=== PATIENT | male | born 1985 | race Two or more races ===

== ENCOUNTER 2018-05-12 13:24 | Emergency (ER) | payer OTHER ==
--- NOTE | 2018-05-12 13:32 | PDOC ---
History of Present Illness - General Stated Complaint: CHEST PAIN Time Seen by Provider: 05/12/18 13:31 - History of Present Illness Initial Comments: 05/12/18 13:51 The patient is a 32 year old male with a history of HTN who presents for evaluation of chest pain and shortness of breath. The patient reports that he has been having intermittent sharp chest pain over the past few days lasting a few seconds. He states that today he was walking back from court when he experienced a sensation that he couldn't catch his breath with a pounding sensation in his chest and tingling in his fingertips prompting his presentation to the ED for further evaluation. He states that he has been under a number of social stressors lately and noted that his symptoms have worsened in conjunction with his worsening social stressors. He otherwise denies fevers, chills, nausea, vomiting, abdominal pain, or changes with urination or bowel movements. Past History - Past Medical History Allergies/Adverse Reactions: Allergies Allergy/AdvReac Type Severity Reaction Status Date / Time No Known Allergies Allergy Verified 05/12/18 13:47 Home Medications: Ambulatory Orders Hydrochlorothiazide 12.5 mg PO DAILY #20 tablet 05/12/18 Lisinopril [Prinivil] 20 mg PO DAILY #20 tablet 05/12/18 Review of Systems - Review of Systems Comments:: 05/12/18 13:54 Constitutional: No fevers, chills, fatigue, malaise HEENT: No Rhinorrhea, nasal congestion, visual changes Cardiovascular: Chest pain. No syncope, palpitations, lightheadedness Respiratory: SOB. No Cough, Hemoptysis, Gastrointestinal: No Abdominal pain, Nausea, Vomiting, Constipation, Diarrhea, Melena Genitourinary: No Dysuria, Frequency, Urgency, Hesitancy, Hematuria, Flank pain Musculoskeletal: No Myalgia, arthralgia Skin: No rashes, itching, bruising, pallor Neurologic: Tingling. No Headache, Dizziness, Numbness, Weakness, Psychiatric: No Hallucinations. No SI or HI *Physical Exam - Physical Exam Comments: 05/12/18 13:55 General Appearance: Nourished. No Apparent Distress HEENT: No Pharyngeal Erythema, Tonsillar Exudate, Tonsillar Erythema Neck: No Cervical Lymphadenopathy Respiratory/Chest: Lungs Clear, Normal Breath Sounds. No Crackles, Rales, Rhonchi, Wheezing Cardiovascular: Regular Rhythm, Regular Rate. No Murmur, Gallops, Rubs Gastrointestinal/Abdominal: Normal Bowel Sounds, Soft. No Guarding, Rebound, Tenderness Musculoskeletal: No CVA Tenderness Extremity: Normal Capillary Refill Integumentary: Normal Color, Dry, Warm Neurologic: Fully Oriented, Alert, Normal Mood/Affect, Normal Response, Heart Score/ECG Review #1 ECG reviewed & interpreted by me at: 15:00 General ECG Interpretation: Sinus Rhythm, Normal Rate, Normal Intervals, No acute ischemic changes ED Treatment Course - LABORATORY CBC & Chemistry Diagram: 05/12/18 14:35 05/12/18 14:35 Medical Decision Making - Medical Decision Making 05/12/18 13:56 The patient is a 32 year old male with a history of HTN who presents for evaluation of chest pain and shortness of breath. Differential includes but is not limited to: Arrhythmia, ACS, Anxiety, Musculoskeletal, Infectious, Metabolic Derangement. Given the patient's history and physical exam, it is likely his symptoms are related to an anxiety attack. However, we will obtain a cbc, cmp, troponin, chest plain film, ekg to evaluate further. We will continue to monitor and reassess while here in the ED. 05/12/18 18:36 CBC, cmp, troponin are unremarkable. Chest plain film demonstrates a large heart. Bedside echocardiogram is unremarkable. We discussed the case with cardiology who agrees with outpatient management. The patient's blood pressure has been persistently elevated after treatment with lisinopril, hydrochlorothiazid, lebatolol. He has not been compliant with medications and likely is persistently hypertensive at baseline. We discussed the risks of hypertension and persistent hypertension with the patient and the patient voiced that he wished to leave and understands the risks of his persistent hypertension. The patient is currently asymptomatic and we will discharge the patient with cardiology follow up. We discussed the results, plan and return precautions with the patient who voiced understanding and is agreeable with the plan. *DC/Admit/Observation/Transfer Diagnosis at time of Disposition: Chest pain Qualifiers: Chest pain type: unspecified Qualified Code(s): R07.9 - Chest pain, unspecified - Discharge Dispostion Disposition: HOME Condition at time of disposition: Stable - Prescriptions Prescriptions: Hydrochlorothiazide 12.5 mg PO DAILY #20 tablet Lisinopril [Prinivil] 20 mg PO DAILY #20 tablet - Referrals Referrals: Eron Matthews MD [Staff Physician] - Ligia Contreras MD [Staff Physician] - Magy Carrera MD [Staff Physician] - - Patient Instructions Printed Discharge Instructions: DI for Atypical Chest Pain Additional Instructions: Please return to the ER if you experience concerning or worsening symptoms including worsening difficulty breathing, weakness, or chest pain. Your lab results were normal here in the ER. Please call to schedule a follow up appointment with our technical support director within 2-3 days to discuss your ER visit and further management of your symptoms. - Post Discharge Activity Forms/Work/School Notes: Back to Work
[2018-05-12] MEDS ORDERED: SODIUM CHLORIDE 1,000 ML IV STA (13:48)
[2018-05-12 13:57] VITALS: TEMP 98.2; BMI 39.1
[2018-05-12 14:55] LABS: BASO % 0.6 % (0-2.0); EOS % 1.1 % (0-4.5); HEMOGLOBIN 19.5 GM/dL (11.7-16.9); LYMPH % 24.4 % (8-40); MCH 28.5 pg (25.7-33.7); MCHC 33.6 g/dl (32.0-35.9); MEAN CELL VOLUME 84.9 fl (80-96); MEAN PLT VOLUME 7.3 fl (7.5-11.1); MONO % 7.1 % (3.8-10.2); NEUT % 66.8 % (42.8-82.8); PLATELET COUNT 254 K/MM3 (134-434); RBC 6.84 M/mm3 (4.00-5.60); WHITE BLOOD COUNT 7.8 K/mm3 (4.0-10.0)
[2018-05-12 15:37] LABS: ALBUMIN 3.9 g/dl (3.4-5.0); ALK PHOS 51 U/L (45-117); ANION GAP 10 MMOL/L (8-16); BILIRUBIN,TOTAL 0.6 mg/dL (0.2-1); BLOOD UREA NITROGEN 10 mg/dL (7-18); CALCIUM 8.8 mg/dL (8.5-10.1); CHLORIDE 101 mmol/L (98-107); CO2 25 mmol/L (21-32); GLUCOSE,RANDOM 77 mg/dL (74-106); POTASSIUM 4.5 mmol/L (3.5-5.1); SGOT/AST 20 U/L (15-37); SGPT/ALT 26 U/L (13-61); SODIUM 136 mmol/L (136-145); TOT PROT 7.6 g/dl (6.4-8.2)
[2018-05-12] MEDS ORDERED: LISINOPRIL 20 MG TABLET (FP) PO ONE (15:52)
[2018-05-12] MEDS ORDERED: HYDROCHLOROTHIAZIDE 25 MG TABLET (FP) PO ONE (15:52)
--- NOTE | 2018-05-12 16:00 | PDOC ---
Attending Attestation - HPI HPI: 05/12/18 16:01 Patient is a 32 year old male with a significant past medical history of HTN, who presents to the ED with complaints of shortness of breath that began this morning. Patient reports leaving the courtroom when he began to experiencing shortness of breath, as well as associated symptoms of sensation of heart pounding, tingling in hands, chest pain, and sensation of woozy feeling, prompting him to come into the ED for further evaluation. He reports being non compliant with HTN medication for the past month. Patient reports experiencing insomnia as well as being told by girlfriend of continuous snoring at night, stating it appears as if hes gasping for air. Denies Denies nausea, vomiting. Denies contact with sick individuals, out of state travelling. Denies trauma to affected area. Denies fevers, chills. Denies any other symptoms. Allergies: None Social history: No smoking. No alcohol. No illicit drugs. Surgical history: None PMD: None - Physicial Exam PE: 05/12/18 16:01 GENERAL: Awake, alert, and fully oriented, in no acute distress HEAD: No signs of trauma EYES: PERRLA, EOMI, sclera anicteric, conjunctiva clear ENT: Auricles normal inspection, hearing grossly normal, nares patent, oropharynx clear without exudates. Moist mucosa NECK: Normal ROM, supple, no lymphadenopathy, JVD, or masses LUNGS: Breath sounds equal, clear to auscultation bilaterally. No wheezes, and no crackles HEART: Regular rate and rhythm, normal S1 and S2, no murmurs, rubs or gallops ABDOMEN: +Tenderness to palpation of the epigastrium. +Left CVA tenderness. Left lower quadrant tenderness. +superpubic tenderness to palpation. Soft, nontender, normoactive bowel sounds. No guarding, no rebound. No masses EXTREMITIES: Normal range of motion, no edema. No clubbing or cyanosis. No cords, erythema, or tenderness NEUROLOGICAL: Cranial nerves II through XII grossly intact. Normal speech, normal gait SKIN: Warm, Dry, normal turgor, no rashes or lesions noted. <Armin Floyd - Last Filed: 05/12/18 16:01> - Resident Resident Name: Rupert Drake - ED Attending Attestation I have performed the following: I have examined & evaluated the patient, The case was reviewed & discussed with the resident, I agree w/resident's findings & plan, Exceptions are as noted - Medical Decision Making 05/12/18 15:55 A portion of this note was documented by scribe services under my direction. I have reviewed the details of the note, within reason, and agree with the documentation with the following case summary and management plan written by me. Patient treated in the ED. Nursing notes are reviewed and incorporated into the medical decision-making. Vital signs reviewed. Peripheral IV access obtained by the nurse, laboratory studies are drawn and sent, reviewed and interpreted by myself. Vital Signs Temp Pulse Resp BP Pulse Ox 98.2 F 106 H 23 H 158/103 H 100 05/12/18 13:30 05/12/18 13:30 05/12/18 13:30 05/12/18 13:30 05/12/18 13:30 32-year-old male patient with history obesity and hypertension presents with atypical chest pain for 2 weeks. Patient reports very intermittent chest discomfort that is nonexertional. Occasionally reported with short of breath. However, patient reports that this lasts for brief several seconds to minutes. She he states that he's undertreatment stress with school examinations and now recently a court proceeding. Patient reports that he also suspects that he may have obstructive sleep apnea as his girlfriend reminds him of his snoring. Patient reports some insomnia and fatigue. Denies prior history of blood clots in his lungs or his legs. No history of hemoptysis. Denies asthma or COPD. Denies smoking history. Patient's blood pressure is elevated but he reports that he is not adherent to his lisinopril and HCTZ. Patient had finish his court proceedings today and felt the pain again to came to the ER. The patient's EKG and labs including troponin is unremarkable. I suspect this is atypical and related to his stress. I have very low suspicion for pulmonary embolis. I did speak and consult with ironworker wire fence erector, Dr. Contreras. She agrees that the patient can follow-up as an outpatient in their office. I will also refer the patient to radio artist to rule out or evaluate for objective sleep apnea. Will encourage patient to take his hypertension medications. Pt is agreeable for plan and for outpatient management. 05/12/18 16:30 Chest xray demonstrates a large heart but no other acute findings. Will perform bedside ultrasound, if no pericardial effusion noted, will have patient follow up as an outpatient. 05/12/18 16:45 Bedside ultrasound reviewed by me. Overall good global contractility and no pericardial effusion. CBC, BMP 05/12/18 14:35 05/12/18 14:35 CMP Sodium 136 mmol/L (136-145) 05/12/18 14:35 Potassium 4.5 mmol/L (3.5-5.1) 05/12/18 14:35 Chloride 101 mmol/L (98-107) 05/12/18 14:35 Carbon Dioxide 25 mmol/L (21-32) 05/12/18 14:35 Anion Gap 10 MMOL/L (8-16) 05/12/18 14:35 BUN 10 mg/dL (7-18) 05/12/18 14:35 Creatinine 1.0 mg/dL (0.55-1.3) 05/12/18 14:35 Creat Clearance w eGFR > 60 (>60) 05/12/18 14:35 Random Glucose 77 mg/dL (74-106) 05/12/18 14:35 Calcium 8.8 mg/dL (8.5-10.1) 05/12/18 14:35 Total Bilirubin 0.6 mg/dL (0.2-1) 05/12/18 14:35 AST 20 U/L (15-37) 05/12/18 14:35 ALT 26 U/L (13-61) 05/12/18 14:35 Alkaline Phosphatase 51 U/L (45-117) 05/12/18 14:35 Creatine Kinase 106 IU/L (26-308) 05/12/18 14:35 Troponin I < 0.02 ng/ml (0.00-0.05) 05/12/18 14:35 Total Protein 7.6 g/dl (6.4-8.2) 05/12/18 14:35 Albumin 3.9 g/dl (3.4-5.0) 05/12/18 14:35 05/12/18 18:36 Pt's BP remains persistently elevated, but the patient is asymptomatic. Pt given labetalol. However, after lengthy discussion, pt wishes to go home. He does not have symptoms now, so this would be hypertensive urgency. Patient is aware of risks of persistently elevated BP and can repeat them to me. If patient decides to leave, he will leave knowing the risks. <Dhaval Negro - Last Filed: 05/12/18 18:37> Heart Score/ECG Review - History History: Slightly suspicious - Electrocardiogram EKG: Normal - Age Age: </= 45 - Risk Factors Risk Factors Heart Score: Yes Hx Hypertension, Yes Hx Obesity Based on the list above the patient has:: 1-2 risk factors - Troponin Troponin: </= normal limit - Score Heart Score - Total: 1 #1 ECG reviewed & interpreted by me at: 13:40 05/12/18 15:53 NSR 102, no std/nadir, normal axis, normal intervals, QTC 466 msec <Dhaval Negro - Last Filed: 05/12/18 18:37>
--- NOTE | 2018-05-12 17:10 | EKG ---
Test Reason : Blood Pressure : / mmHG Vent. Rate : 102 BPM Atrial Rate : 102 BPM P-R Int : 176 ms QRS Dur : 092 ms QT Int : 358 ms P-R-T Axes : 025 067 042 degrees QTc Int : 466 ms SINUS TACHYCARDIA OTHERWISE NORMAL ECG NO PREVIOUS ECGS AVAILABLE Confirmed by JAMIE BURGESS MD ([id number]) on 05/12/2018 5:10:11 PM Referred By: Confirmed By:JAMIE BURGESS MD
[2018-05-12] MEDS ORDERED: HYDROCHLOROTHIAZIDE 25 MG TABLET (FP) ONE (17:15)
[2018-05-12] MEDS ORDERED: LISINOPRIL 5 MG TABLET (FP) ONE (17:15)
[2018-05-12] MEDS ORDERED: LABETALOL HCL 5 MG/1 ML (100MG/20 ML VIAL) IVPUSH ONE (18:05)
[2018-05-12] MEDS ORDERED: LABETALOL HCL 5 MG/1 ML (200MG/40ML VIAL) IVPB ONE (18:21)
[2018-05-12 19:22] VITALS: BP 153/106; PULSE 90
== END 2018-05-12 18:48 | disposition home or self-care (01) ==
LOC: JER 13:24
DX: R07.9 Chest pain, unspecified (principal); I10 Essential (primary) hypertension
CPT/HCPCS: 36415; 71045-TC-FY; 80053; 82550; 84484; 85025; 93005; 93010; 99283-25; J7030

== ENCOUNTER 2018-09-12 17:00 | Emergency (ER) | payer OTHER ==
[2018-09-12 17:16] VITALS: BP 135/91; PULSE 90; TEMP 98.7; BMI 38.0
--- NOTE | 2018-09-12 17:16 | PDOC ---
History of Present Illness - History of Present Illness Initial Comments: This patient is a 32 year old male, with PMHx of HTN, who was BIBA and presents s/p right knee injury. Patient states that he was walking down stairs at work when he slipped and fell. He states that his right leg folded in half and he banged it on the stairs. He states that he was given Tylenol en route. Patient states that he is up-to-date on his tetanus. He denies hitting his head or loc. 09/12/18 17:36 <Amanda Mosqueda - Last Filed: 09/12/18 17:36> <Nilda Lopez - Last Filed: 09/12/18 19:02> - General Chief Complaint: Injury Stated Complaint: FALL Time Seen by Provider: 09/12/18 17:15 Past History <Amanda Mosqueda - Last Filed: 09/12/18 17:36> - Past Medical History COPD: No HTN: Yes Psychiatric Problems: Yes (ptsd) - Suicide/Smoking/Psychosocial Hx Smoking History: Never smoked Have you smoked in the past 12 months: No Information on smoking cessation initiated: No Hx Alcohol Use: No Drug/Substance Use Hx: No Substance Use Type: None <Nilda Lopez - Last Filed: 09/12/18 19:02> - Past Medical History Allergies/Adverse Reactions: Allergies Allergy/AdvReac Type Severity Reaction Status Date / Time No Known Allergies Allergy Verified 05/12/18 13:47 Home Medications: Ambulatory Orders Hydrochlorothiazide 12.5 mg PO DAILY #20 tablet 05/12/18 Lisinopril [Prinivil] 20 mg PO DAILY #20 tablet 05/12/18 traMADol HCL [Ultram -] 50 mg PO Q8H #15 tablet MDD 3 09/12/18 Review of Systems - Review of Systems Comments:: GENERAL/CONSTITUTIONAL: No fever or chills. No weakness. HEAD, EYES, EARS, NOSE AND THROAT: No change in vision. No ear pain or discharge. No sore throat. CARDIOVASCULAR: No chest pain or shortness of breath. RESPIRATORY: No cough, wheezing, or hemoptysis. GASTROINTESTINAL: No nausea, vomiting, diarrhea or constipation. GENITOURINARY: No dysuria, frequency, or change in urination. MUSCULOSKELETAL: +right knee pain and swelling. No neck or back pain. SKIN: +right great toe abrasion. NEUROLOGIC: No headache, vertigo, loss of consciousness, or change in strength/ sensation. ENDOCRINE: No increased thirst. No abnormal weight change. HEMATOLOGIC/LYMPHATIC: No anemia, easy bleeding, or history of blood clots. ALLERGIC/IMMUNOLOGIC: No hives or skin allergy. 09/12/18 17:40 <Amanda Mosqueda - Last Filed: 09/12/18 17:36> *Physical Exam - Vital Signs Last Vital Signs Temp Pulse Resp BP Pulse Ox 98.7 F 90 20 135/91 95 09/12/18 17:10 09/12/18 17:10 09/12/18 17:10 09/12/18 17:10 09/12/18 17:10 - Physical Exam Comments: GENERAL: Awake, alert, and fully oriented, in no acute distress HEAD: No signs of trauma EYES: PERRLA, EOMI, sclera anicteric, conjunctiva clear ABDOMEN: Soft, nontender, normoactive bowel sounds. No guarding, no rebound. No masses EXTREMITIES: Exam limited due to nature of knee. Medial right knee tenderness to palpation. Strength intact. No calf tenderness. No tibial tenderness. Distal pulses intact. NEUROLOGICAL: Cranial nerves II through XII grossly intact. Normal speech. Gait not tested. SKIN: Small lateral abrasion to right great toe. Warm, Dry, normal turgor. 09/12/18 17:43 <Amanda Mosqueda - Last Filed: 09/12/18 17:36> - Vital Signs Last Vital Signs Temp Pulse Resp BP Pulse Ox 98.7 F 90 20 135/91 95 09/12/18 17:10 09/12/18 17:10 09/12/18 17:10 09/12/18 17:10 09/12/18 17:10 <Nilda Lopez - Last Filed: 09/12/18 19:02> Moderate Sedation - Procedure Monitoring Vital Signs: Procedure Monitoring Vital Signs Temperature 98.7 F 09/12/18 17:10 Pulse Rate 90 09/12/18 17:10 Respiratory Rate 20 09/12/18 17:10 Blood Pressure 135/91 09/12/18 17:10 O2 Sat by Pulse Oximetry (%) 95 09/12/18 17:10 <Amanda Mosqueda - Last Filed: 09/12/18 17:36> - Procedure Monitoring Vital Signs: Procedure Monitoring Vital Signs Temperature 98.7 F 09/12/18 17:10 Pulse Rate 90 09/12/18 17:10 Respiratory Rate 20 09/12/18 17:10 Blood Pressure 135/91 09/12/18 17:10 O2 Sat by Pulse Oximetry (%) 95 09/12/18 17:10 <Nilda Lopez - Last Filed: 09/12/18 19:02> Medical Decision Making - Medical Decision Making 09/12/18 18:39 A portion of this note was documented by scribe services under my direction. I have reviewed the details of the note, within reason, and agree with the documentation with the following case summary and management plan written by me. A/P: Knee pain s/p fall down stairs at work Pt able to perform straight leg raise on the R side, TTP of the R medial knee. Unable to perform a knee exam d/t swelling and pain X-ray negative for fracture Cannot r/o MCL injury Knee immobilizer, pain control, crutches DC home I discussed the physical exam findings, ancillary test results and final diagnoses with the patient. I answered all of the patient's questions. The patient was satisfied with the care received and felt comfortable with the discharge plan and treatment plan. The Patient agrees to follow up with the primary care physician/specialist within 24-72 hours. Return precautions were given. <Nilda Lopez - Last Filed: 09/12/18 19:02> *DC/Admit/Observation/Transfer - Attestations Scribe Attestion: 09/12/18 17:47 Documentation prepared by Amanda Mosqueda, acting as durable medical equipment repairer for Nilda Lopez PA. <Amanda Mosqueda - Last Filed: 09/12/18 17:36> - Discharge Dispostion Decision to Admit order: No <Nilda Lopez - Last Filed: 09/12/18 19:02> Diagnosis at time of Disposition: Knee pain Qualifiers: Chronicity: acute Laterality: right Qualified Code(s): M25.561 - Pain in right knee - Discharge Dispostion Disposition: HOME Condition at time of disposition: Stable - Referrals Referrals: Jenniffer Spears MD [Primary Care Provider] - Robert Vicente MD [Staff Physician] - - Patient Instructions Printed Discharge Instructions: DI for Knee Pain Additional Instructions: You were evaluated for your knee pain. Take the Tramadol as directed. Do not drink or drive after taking this medication Your x-ray did not show any broken bones Please wear the knee immoblizer and use crutches while walking Follow up with orthopedics this week Return to the ED for any new or worsening symptoms. - Post Discharge Activity Forms/Work/School Notes: Back to Work
[2018-09-12] MEDS ORDERED: IBUPROFEN 400 MG TABLET (FP) PO ONE ×2 (17:49→17:53)
[2018-09-12] MEDS ORDERED: traMADol HCL 50 MG TABLET PO ONE (18:58)
[2018-09-12] MEDS ORDERED: traMADol HCL 50 MG TABLET ONE (19:13)
== END 2018-09-12 20:00 | disposition home or self-care (01) ==
LOC: JER 17:00 → JERFT 17:00
PROC: 2W3QXYZ Immobilization of Right Lower Leg using Other Device (ICD-10-PCS; principal; 2018-09-12)
DX: M25.561 Pain in right knee (principal); W10.8XXA Fall (on) (from) other stairs and steps, initial encounter; Y93.89 Activity, other specified; Y92.59 Other trade areas as the place of occurrence of the external cause; Y99.0 Civilian activity done for income or pay
CPT/HCPCS: 73562-TC-RT-FY; 99282-25